=== PATIENT | male | born 1995 | race Caucasian/White ===

== ENCOUNTER 2022-12-16 07:47 | Outpatient (AMB) | payer OTHER, SELFPAY ==
[2022-12-16 07:59] VITALS: BP 104/62; PULSE 74; O2SAT 99; BMI 44.8
--- NOTE | 2022-12-16 07:59 | A.OFFPC_ITS ---
Vital Signs 12/16/22 07:59 Height 5 ft 10 in Weight 312 lb BMI 44.8 BP 104/62 Blood Pressure Location Lt brachial Position Sitting Pulse 74 Pulse Source Pulse Oximeter Pulse Oximetry (%) 99 Oxygen Delivery Method Room Air Intake Visit Reasons: New patient/Diabetes/Med review/psych Referral Allergies No Known Allergies Allergy (Verified 12/16/22 08:13) Medication List - Last Reconciled 12/16/22 by DIANA Liriano insulin glargine (Lantus Solostar U-100 Insulin) 30 units subcut QPM metformin ER 500 mg PO BID Tobacco use date assessed: 12/16/22 Dental Screening Dental Screen Date: 12/16/22 Did you have a dental visit in the last 12 months?: No Did you have a dental problem in the last 6 months where you did not have access to dental care?: No Was dental information given to patient?: No HPI HPI Comments History of Present Illness Details 27-year-old male new patient presents today to establish care. Past medical history significant for type 2 diabetes mellitus. Patient reports he checks his sugars at home in the ran between 100-200 range. Patient requesting refills on metformin, Lantus and pen needles. Refills sent to requested pharmacy by patient. Patient also requesting an appointment for physical exam. Fasting labs ordered. Previous patient of [facility] in [place], will request records. [facility] Medical History (Updated 12/16/22 @ 08:14 by DIANA Liriano) Hypertension Family History (Updated 12/16/22 @ 08:15 by DIANA Liriano) Mother No problems noted. Son No problems noted. Social History (Updated 12/16/22 @ 08:15 by DIANA Liriano) Housing: Other (live with parents) Alcohol intake: never Patient Tobacco Use Status: Never used Tobacco e-Cigarette/Vaping Use: Never Used Second Hand Smoke Exposure: No service: No Current occupational status: unemployed Current occupational exposures/hazards: No Cognitive needs: No Hearing needs: No Vision needs: No Questionnaire PHQ-9 Over the last 2 weeks, how often have you been bothered by any of the following problems? 1. Little interest or pleasure in doing things: not at all 2. Feeling down, depressed, or hopeless: not at all 3. Trouble falling or staying asleep, or sleeping too much: not at all 4. Feeling tired or having little energy: not at all 5. Poor appetite or overeating: not at all 6. Feeling bad about yourself - or that you are a failure or have let yourself or your family down: not at all 7. Trouble concentrating on things, such as reading the newspaper or watching television: not at all 8. Moving or speaking so slowly that other people could have noticed. Or the opposite - being so fidgety or restless that you have been moving around a lot more than usual: not at all 9. Thoughts that you would be better off or of hurting yourself in some way: not at all Total score: 0 Depression Screening Interpretation: Negative 71834 - PHQ-9 Billing: Yes Source: Developed by Drs. Aleksandr Miranda, Sirisha Valentine, Elgin Rodriguez and colleagues, with an educational luis manuel from [employer]. Thrive Questionnaire Date Thrive assessed: 12/16/22 I am a: Patient What is your living situation today?: I have a steady place to live Within the past 12 months, did the food you bought not last and you didn't have the money to get more?: Never true Within the past 12 months, did you worry whether your food would run out before you got money to buy more?: Never true Do you have trouble paying for medicines?: No Do you have trouble getting transportation to medical appointments?: No Do you have trouble paying your heating and electricity bill?: No Do you have trouble taking care of your child, family member or friend?: No Do you have trouble with day-to-day activities such as bathing, preparing meals, shopping, managing finances, etc.?: No Are you currently unemployed and looking for a job?: No Are you interested in more education?: No Currently or been in a relationship where the following occur: no concerns reported AUDIT C Alcohol Use Questionnaire (AUDIT-C) 1. How often do you have a drink containing alcohol?: Never 3. How often do you have six or more drinks on one occasion?: Never Total Score: 0 SANDRA-7 AMB Questionnaire SANDRA-7 Date SANDRA - 7 assessed: 12/16/22 Feeling nervous, anxious, or on edge: 0 = Not at all Not being able to stop or control worryin = Not at all Worrying too much about different things: 0 = Not at all Trouble relaxin = Not at all Being so restless that it is hard to sit still: 0 = Not at all Becoming easily annoyed or irritable: 0 = Not at all Feeling afraid as if something awful might happen: 0 = Not at all Total SANDRA-7 score (0-4 normal; 5-9 mild; 10-14 moderate; 15-21 severe): 0 Source: Developed by Drs. Aleksandr Miranda, Sirisha Valentine, Elgin Rodriguez and colleagues, with an educational luis manuel from [employer]. SANDRA-7 Assessment Billing SANDRA-7 Assessment Tool: SANDRA-7 Assessment 22795 Review of Systems Const Denies chills, Denies fatigue, Denies fever(s) and Denies poor appetite Eyes Denies no additional complaints ENT Reports Normal hearing present Card Denies chest pain, Denies syncope, Denies rapid heart rate and Denies dyspnea Resp Denies cough and Denies dyspnea GI Denies change in stool character, Denies constipation, Denies diarrhea, Denies nausea and Denies vomiting Denies dysuria, Denies urinary frequency and Denies urinary urgency Neuro Reports Normal hearing present, Denies confusion and Denies syncope Psych Denies confusion Endo Denies fatigue Physical exam (Primary Care) Vital Signs: Last Vital Signs Pulse 74 12/16/22 07:59 BP 104/62 12/16/22 07:59 Pulse Ox 99 12/16/22 07:59 Oxygen Delivery Method Room Air 12/16/22 07:59 BMI result Body Mass Index 44.8 Tobacco/Smoking Status: Tobacco use Status Tobacco use date assessed 12/16/22 12/16/22 08:08 Patient Tobacco Use Status Never used Tobacco 12/16/22 08:15 e-Cigarette/Vaping Use Never Used 12/16/22 08:15 PHQ-9: PHQ-9 Score PHQ-9: Total score 0 12/16/22 08:38 Depression Screening Interpretation: Negative Thrive Assessment: Date of Thrive Assessment Date Thrive assessed 12/16/22 12/16/22 07:59 Currently or been in a relationship where the following occur: no concerns reported Const General: No confusion Orientation/consciousness: No confusion HENMT Head: Yes normocephalic and Yes atraumatic Eyes Conjunctivae: conjunctivae normal Chest Chest palpation & inspection: normal inspection of the chest Resp Effort & Inspection: normal respiratory effort Auscultation: clear to auscultation bilaterally, no crackles, no rhonchi and no wheezes Cardio Rate: regular rate Rhythm: regular rhythm Heart sounds: S1 normal heart sound present and S2 normal heart sound present GI Inspection: Yes normal to inspection Neuro General: No confusion Cranial nerves: Yes Normal hearing present Extrem General: No edema Results AMB Hemoglobin A1c AMB Hemoglobin A1c 11.7 % Last Edit by Aga Helton CMA on 12/16/22 08:10 Results Reviewed Results Reviewed: Laboratory Last Values Hgb A1c (Clinic) 11.7 % (4.0-6.0) H 12/16/22 07:59 Assessment and Plan Assessment & Plan (1) Type 2 diabetes mellitus: Comment: Dx age 26 Code(s): E11.9 - Type 2 diabetes mellitus without complications Plan: Continue on metformin 500 mg b.i.d. Patient educated to decrease the amount of carbohydrate intake such as pasta, bread, rice and potatoes are all sugar in addition to the sweet stuff. Remember that fruits are good but they also have sugar.Hemoglobin A1c goal of less than 6.5% Hgb A1c ordered. Follow up in 3 months (2) Encounter to establish care with new doctor: Code(s): Z76.89 - Persons encountering health services in other specified circumstances Plan Follow up in 1 month for physical exam. Orders: Orders Comprehensive [place]. Panel Fast Today E11.9 - Type 2 diabetes mellitus without complications Hemoglobin A1c Today E11.9 - Type 2 diabetes mellitus without complications Lipid Panel Today Z13.220 - Encounter for screening for lipoid disorders TSH reflex Free T4 Today Z13.29 - Encounter for screening for other suspected endocrine disorder Complete Blood Count Auto Diff Today Z13.0 - Encounter for screening for diseas es of the blood and blood-forming organs and certain disorders involving the immune mechanism T Spot TB Today Z11.1 - Encounter for screening for respiratory tuberculosis AMB Hemoglobin A1c Today Z13.9 - Encounter for screening, unspecified Medications: New insulin glargine (Lantus Solostar U-100 Insulin) 30 units (0.3 mL) subcut QPM 15 mL 0RF E11.9 - Type 2 diabetes mellitus without complications pen needle, diabetic (BD Ultra-Fine [place] Pen Needle) As directed 40 ea 3RF metformin 500 mg PO BID 60 tabs 3RF Coding Level of Care Code New Pt Level 3 (23376) Diagnoses Type 2 diabetes mellitus E11.9 Encounter to establish care with new doctor Z76.89 Additional Codes SANDRA-7 Assessment Billing - SANDRA-7 Assessment Tool: SANDRA-7 Assessment 73252 ([id number])
== END 2022-12-16 08:36 | disposition home or self-care (01) ==
PROVIDERS: PCP Nurse Practitioner Family; Visit Provider Nurse Practitioner Family
DX: E11.9 Type 2 diabetes mellitus without complications (principal); Z76.89 Persons encountering health services in other specified circumstances
CPT/HCPCS: 83036; 99203